=== PATIENT | female | born 1945 | race American Indian/Alaskan Native ===

== ENCOUNTER 2019-07-15 10:18 | Outpatient (CLI) | payer MEDICARE ==
--- NOTE | 2019-07-15 16:24 | Ultrasound Report ---
LEFT DIGITAL DIAGNOSTIC MAMMOGRAM WITH CAD -- 07/15/2019 LEFT LIMITED BREAST ULTRASOUND INDICATION: Six-month follow-up of a mammographic nodule. TECHNIQUE: Digital left mammographic imaging was performed. Magnification views were obtained. This examination was interpreted with the benefit of Computer-Aided Detection (CAD) analysis. COMPARISON 01/30/2019 mammogram and left breast ultrasound from [facility]. FINDINGS: Breast Density: The breast is heterogeneously dense, which may obscure small masses. MAMMOGRAPHIC FINDINGS: A stable oval low-density lower inner circumscribed nodule. ULTRASOUND FINDINGS: Targeted ultrasound evaluation was performed of the area of interest. Ultrasou nd demonstrated a stable oval anechoic cyst at 8:00 5 cm from the nipple measuring 8 x 8 x 4 mm. It c orrelates with the previously identified lesion. No solid mass or shadowing. IMPRESSION: A benign 8 mm cyst at 8:00 5 cm from the nipple. Follow up recommendation: Routine yearly BI-RADS Category 2: Benign. A "normal" or negative report should not discourage follow up or biopsy of a clinically significant f inding. A written summary of these findings will be mailed to the patient. The patient will be entered into a mammography reporting system which will generate a reminder letter for the patient's next appointmen t at the appropriate interval. According to the [employer], yearly mammograms are recommended starting at age 40 and continuing as long as a woman is in good health. Breast MRI is recommended for women with an kezia roximately 20-25% or greater lifetime risk of breast cancer, including women with a strong family his tory of breast or ovarian cancer and women who have been treated for Hodgkin's disease. Signer Name: Rakesh Baird MD Signed: 07/15/2019 4:20 PM Workstation Name: [id number]
== END 2019-07-15 10:19 | disposition home or self-care (01) ==
LOC: SPVWC 10:18
PROVIDERS: ATTEND Surgery
DX: R92.8 Other abnormal and inconclusive findings on diagnostic imaging of breast (principal)

== ENCOUNTER 2020-03-23 10:33 | Outpatient (CLI) | payer MEDICARE | END 2020-03-23 10:34 | disposition home or self-care (01) | LOC: SPVWC 10:33 | PROVIDERS: ATTEND Surgery | DX: Z12.31 Encounter for screening mammogram for malignant neoplasm of breast (principal); N64.89 Other specified disorders of breast | CPT/HCPCS: 77067 ==

== ENCOUNTER 2021-03-29 12:18 | Outpatient (CLI) | payer MEDICARE ==
--- NOTE | 2021-03-29 13:04 | Mammography Report ---
DIGITAL SCREENING MAMMOGRAM WITH CAD, 03/29/2021 CLINICAL INFORMATION / INDICATION: Routine screening mammography. SCREENING MAMMO TECHNIQUE: Digital bilateral 2D mammography was obtained in the craniocaudal and mediolateral obliqu e projections. This examination was interpreted with the benefit of Computer-Aided Detection analysis . COMPARISON: 01/16/2019 through 03/23/2020. FINDINGS: Breast Density: The breasts are heterogeneously dense, which may obscure small masses. No dominant mass, suspicious calcifications, or architectural distortion in the right breast. Benign-appearing nodularity in the left breast inferomedially has not changed significantly. No new a bnormality is seen. IMPRESSION: No mammographic evidence of malignancy. Follow up recommendation: Routine yearly BI-RADS Category 2: Benign. A "normal" or negative report should not discourage follow up or biopsy of a clinically significant f inding. A written summary of these findings will be mailed to the patient. The patient will be entered into a mammography reporting system which will generate a reminder letter for the patient's next appointmen t at the appropriate interval. The [employer] recommends yearly mammograms starting at age 40 and continuing as l rae as a woman is in good health. Breast MRI is recommended for women with an approximate 20-25% or greater lifetime risk of breast cancer, including women with a strong family history of breast or ova camryn cancer or who have been treated for Hodgkin's disease. Signer Name: Moe Vaughn MD Signed: 03/29/2021 12:59 PM Workstation Name: [id number]
== END 2021-03-29 12:19 | disposition home or self-care (01) ==
LOC: SPVWC 12:18
PROVIDERS: ATTEND Surgery
DX: Z12.31 Encounter for screening mammogram for malignant neoplasm of breast (principal)
CPT/HCPCS: 77067